=== PATIENT | male | born 1995 | race Two or more races ===

== ENCOUNTER 2025-03-16 07:39 | Emergency (ER) | payer MEDICAID ==
[~2025-03-16] VITALS: Ht 172.7 cm; Wt 83.0 kg
[2025-03-16 07:44] VITALS: BP 133/91; TEMP 98.1
[2025-03-16] MEDS ORDERED: CEPH-570 PO (08:15)
[2025-03-16 08:21] VITALS: O2SAT 99
== END 2025-03-16 08:34 | disposition home or self-care (01) ==
LOC: ER 07:47
DX: K02.9 Dental caries, unspecified (principal)